=== PATIENT | female | born 1945 | race Caucasian/White ===

== ENCOUNTER → 2016-12-29 | Outpatient (CLI) | payer MEDICARE, OTHER | LOC: RAD 14:04 | PROVIDERS: ATTEND Physician Assistant | DX: M54.5 Low back pain (principal); M51.36 Other intervertebral disc degeneration, lumbar region | CPT/HCPCS: 72148 ==

== ENCOUNTER 2017-03-24 19:47 | Emergency (ER) | payer MEDICARE, OTHER ==
--- NOTE | 2017-03-24 20:11 | ER Document Report ---
ED GI/ - General Chief Complaint: Constipation Stated Complaint: POSSIBLE CONSTIPATION Time Seen by Provider: 03/24/17 19:51 Mode of Arrival: Ambulatory Information source: Patient Notes: 72-year-old female presents to ED for lower abdominal pain and chronic constipation. She states she takes oxycodone and methadone for her chronic pain. She states her last bowel movement was Tuesday. She has a history of right upper lobe lung cancer with partial right lobe removed she also has a history of cholesterol blood pressure and history of a pulmonary emboli which she did take her Xarelto for but is not on that anymore she also has a history of asthma and COPD and continues to smoke a pack a day. TRAVEL OUTSIDE OF THE [place] IN LAST 30 DAYS: No - HPI Patient complains to provider of: Abdominal pain, Other - Patient states she has not had a bowel movement since Tuesday and thinks she is either constipated or house of bowel obstruction. Onset: Other Timing/Duration: Gradual, Worse Quality of pain: Cramping, Sharp Severity at maximum: Moderate Severity in ED: Moderate Pain Level: 3 Location: LLQ, RLQ, Pelvis Vaginal bleeding (Compared to normal period): None Associated symptoms: Constipation, Other - Chronic pain management chronic constipation Exacerbated by: Movement Relieved by: Denies Similar symptoms previously: Yes Recently seen / treated by doctor: Yes - Related Data Allergies/Adverse Reactions: ZOILA Inhibitors Allergy (Verified 03/24/17 19:57) Past Medical History - General Information source: Patient - Social History Smoking Status: Current Every Day Smoker Cigarette use (# per day): Yes - Pack per day Chew tobacco use (# tins/day): No Smoking Education Provided: Yes - Patient has lung cancer COPD and asthma she has been reinstructed concernin Frequency of alcohol use: None Drug Abuse: None Lives with: Family Family History: Arthritis, CAD, COPD, CVA, Hyperlipidemia, Hypertension. denies : DM, Malignancy, Thyroid Disfunction Patient has suicidal ideation: No Patient has homicidal ideation: No - Past Medical History Cardiac Medical History: Reports: Hx Hypercholesterolemia - History of, Hx Hypertension, Hx Pulmonary Embolism - No longer on Xarelto Pulmonary Medical History: Reports: Hx Asthma, Hx COPD, Other - Right upper lobe lung cancer with right lobectomy EENT Medical History: Reports: None Neurological Medical History: Reports: None Endocrine Medical History: Reports: None Renal/ Medical History: Reports: None Malignancy Medical History: Reports: Hx Lung Cancer - upper right lobe GI Medical History: Reports: None Musculoskeltal Medical History: Reports Hx Arthritis, Reports Hx Musculoskeletal Deformity, Reports Hx Musculoskeletal Trauma Skin Medical History: Reports None Psychiatric Medical History: Reports: Hx Depression - zoloft Traumatic Medical History: Reports: None Infectious Medical History: Reports: None Past Surgical History: Reports: Hx Hysterectomy, Hx Orthopedic Surgery - 4 back surgeries, Other - Partial right lobectomy for lung cancer. Multiple spinal surgeries. - Immunizations Hx Diphtheria, Pertussis, Tetanus Vaccination: No History of Pneumococcal Vaccine: Yes - 2016 Review of Systems - Review of Systems Constitutional: No symptoms reported EENT: No symptoms reported Respiratory: No symptoms reported Gastrointestinal: Abdominal pain, Nausea, Constipation, Poor appetite. denies: Vomiting Genitourinary: No symptoms reported Female Genitourinary: No symptoms reported Musculoskeletal: No symptoms reported Skin: No symptoms reported Hematologic/Lymphatic: No symptoms reported Neurological/Psychological: No symptoms reported Physical Exam - Vital signs Vitals: Temp Pulse Resp BP Pulse Ox 98.2 F 82 20 111/57 L 92 03/24/17 19:57 03/24/17 19:57 03/24/17 19:57 03/24/17 19:57 03/24/17 19:57 Interpretation: Normal - General General appearance: Appears well, Alert - HEENT Head: Normocephalic, Atraumatic Eyes: Normal Pupils: PERRL - Respiratory Respiratory status: No respiratory distress Chest status: Nontender Breath sounds: Normal Chest palpation: Normal - Cardiovascular Rhythm: Regular Heart sounds: Normal auscultation Murmur: No - Abdominal Inspection: Normal Distension: No distension Bowel sounds: Hyperactive Tenderness: Tender Organomegaly: No organomegaly - Back Back: Normal, Nontender - Extremities General upper extremity: Normal inspection, Nontender, Normal color, Normal ROM , Normal temperature General lower extremity: Normal inspection, Nontender, Normal color, Normal ROM , Normal temperature, Normal weight bearing. No: Nani's sign - Neurological Neuro grossly intact: Yes Cognition: Normal Orientation: AAOx4 [place] Coma Scale Eye Opening: Spontaneous [place] Coma Scale Verbal: Oriented [place] Coma Scale Motor: Obeys Commands Tereso Coma Scale Total: 15 Speech: Normal Motor strength normal: LUE, RUE, LLE, RLE Sensory: Normal - Psychological Associated symptoms: Normal affect, Normal mood - Skin Skin Temperature: Warm Skin Moisture: Dry Skin Color: Normal Course - Re-evaluation Re-evalutation: 03/25/17 06:43 Patient was given soapsuds and then will enema. She continued to have abdominal pain CT was completed which was negative. Patient discharged home to follow-up with her primary doctor. Patient was instructed to please use as little pain medicine narcotics that she can and use MiraLAX at least daily and to follow-up her primary doctor to resolve her chronic constipation due to narcotics. - Vital Signs Vital signs: Temp Pulse Resp BP Pulse Ox 98.2 F 92 18 196/98 H 94 03/24/17 19:57 03/25/17 01:24 03/25/17 01:24 03/25/17 01:24 03/25/17 01:24 - Laboratory Result Diagrams: 03/24/17 20:15 03/24/17 20:15 Laboratory results interpreted by me: 03/24/17 03/24/17 03/24/17 20:15 20:15 20:35 Hgb 16.1 H Hct 48.2 H RDW 15.2 H Carbon Dioxide 31 H Urine Protein 100 H Urine Urobilinogen 2.0 H - Diagnostic Test Radiology reviewed: Image reviewed, Reports reviewed Discharge - Discharge Clinical Impression: Abdominal pain Qualifiers: Abdominal location: generalized Qualified Code(s): R10.84 - Generalized abdominal pain Condition: Stable Disposition: HOME, SELF-CARE Instructions: Family Physicians / Practices Additional Instructions: ABDOMINAL PAIN: There are many causes of abdominal pain. Pain can mean a serious problem requiring surgery (such as appendicitis). It can also be an innocent problem that goes away on its own (such as a viral infection). Often, time must pass to determine the cause of pain. The physician does not feel that hospitalization is necessary, at present. Things may change within the next 24 hours. Call the doctor or come back for re- examination if any problems occur, such as: (1) Pain that becomes more severe, steady, or becomes concentrated in one specific area. Also, pain that is more severe with movement or coughing. (2) Vomiting that persists or becomes more frequent. (3) Blood in the vomitus, urine, or bowel movements. Blood in the stool may have a tarry or black appearance. (4) Shaking chills or fever greater than 100 degrees F. (5) The abdomen becomes more distended or swollen. (6) Bowel movements cease. (7) Failure to improve as expected. NORMAL EXAM AND WORKUP: At this time, your examination and workup show no significant abnormality. No significant abnormal physical findings are noted. All laboratory, EKG, and imaging (x-ray, CT scans, ultrasound) studies that were ordered show no significant abnormality. Although your examination and all studies that were ordered showed no significant abnormal finding, there are no examinations and no studies that are 100% accurate. There is always the possibility that some abnormality could exist and not be detected with physical examination or within the limits and capabilities of laboratory and other studies. You should return or follow up as you were instructed on your visit today for further evaluation if your symptoms do not resolve. Constipation Constipation is a common problem. It is especially likely as you get older. Constipation is a common cause of abdominal pain, but sometimes causes no symptoms at all. Causes of constipation include certain medications, dehydration, diets, inactivity, and low-fiber intake. Rarely, it can be a symptom of underlying disease. The physician has evaluated you for this. Avoid constipation by eating a diet high in fiber, fruits, and vegetables. Drink plenty of liquids. Get regular exercise. If possible, avoid constipating medicines like narcotic pain medication. Some vitamin tablets can cause constipation. Stool softeners may be needed for difficult cases. An excellent stool softener is Konsyl which is available at [employer], and [facility] drug store. Just add a teaspoon to a glass of pineapple or orange juice daily or twice a day if needed. Laxatives are useful for occasional constipation. You should use them only when necessary. Too-frequent use can make your bowels dependent on them. Some over the counter laxatives available without prescription are: Milk of Magnesia, 1-2 tablespoons twice a day Dulcolax, 5 mg pill or 10 mg suppository. Citrate of Magnesia, 4-5 ounces a day for a day or two For acute constipation, Fleet's Enemas and Dulcolax suppositories are helpful. 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 Your bowel may become dependant on them. You do not need to have a bowel movement every day. Many people do fine with a bowel movement every three or four days. You should call your doctor or return for re-evaluation if you pass blood in the stool, or if you develop fever or increasing abdominal pain. TORADOL INJECTION: You have been given an injection of ketorolac tromethamine (Toradol). This is an excellent, safe drug for pain control. It also has potent antiinflammatory action. You should have significant pain relief within about one hour. Toradol is not addicting and is non-sedating. It does not interfere with driving or work. Call or return if you develop itching, hives, shortness of breath, or rash. FOLLOW-UP CARE: If you have been referred to a physician for follow-up care, call the physician s office for an appointment as you were instructed or within the next two days. If you experience worsening or a significant change in your symptoms, notify the physician immediately or return to the Emergency Department at any time for re-evaluation. Forms: Smoking Cessation Education
[2017-03-24 20:33] LABS: ABSOLUTE EOSINOPHILS # (AUTO) 0.2 10^3/uL (0.0-0.6); ABSOLUTE LYMPHOCYTES (AUTO) 1.7 10^3/uL (0.5-4.7); ABSOLUTE MONOCYTES (AUTO) 0.8 10^3/uL (0.1-1.4); ABSOLUTE NEUT (AUTO) 6.2 10^3/uL (1.7-8.2); BASOPHILS % (AUTO) 0.5 % (0-2); EOSINOPHILS % (AUTO) 1.8 % (0-6); HEMATOCRIT 48.2 % (36.0-47.0); HEMOGLOBIN 16.1 g/dL (12.0-15.5); HGB HCT DIFFERENCE 0.1; LYMPHOCYTES % (AUTO) 19.5 % (13-45); MEAN CORPUSCULAR HEMOGLOBIN 30.5 pg (27.0-33.4); MEAN CORPUSCULAR HGB CONC 33.5 g/dL (32.0-36.0); MEAN CORPUSCULAR VOLUME 91 fl (80-97); MONOCYTES % (AUTO) 9.1 % (3-13); RED BLOOD COUNT 5.28 10^6/uL (3.72-5.28); RED CELL DISTRIBUTION WIDTH 15.2 % (11.5-14.0); SEGMENTED NEUTROPHILS % (AUTO) 69.1 % (42-78); WHITE BLOOD COUNT 8.9 10^3/uL (4.0-10.5)
--- NOTE | 2017-03-24 20:49 | RADIOLOGY REPORT (SQ) ---
EXAM DESCRIPTION: ACUTE ABDOMEN SERIES COMPLETED DATE/TIME: 03/24/2017 8:32 pm REASON FOR STUDY: abdominal pain no bm since tuesday COMPARISON: None. NUMBER OF VIEWS: Three views. TECHNIQUE: Frontal chest, supine abdomen and upright/decubitus abdomen radiographic images acquired. LIMITATIONS: None. FINDINGS: CHEST: Calcified granuloma in the right lung. No focal opacities. No pneumothorax. FREE AIR: None. No abnormal gas collections. BOWEL GAS PATTERN: Nonobstructive pattern. No dilated loops or air fluid levels. Mild amount of stoo l noted within the colon. CALCIFICATIONS: No suspicious calcifications. HARDWARE: None in the abdomen. SOFT TISSUES: No gross mass or suggestion of organomegaly. BONES: No acute fracture. No worrisome bone lesions. OTHER: No other significant finding. IMPRESSION: NO RADIOGRAPHIC EVIDENCE FOR ACUTE ABDOMINAL DISEASE. Mild colonic stool burden. TECHNICAL DOCUMENTATION: JOB ID: [id number] [employer]- All Rights Reserved
[2017-03-24 20:51] LABS: ANION GAP 8 (5-19); BLOOD UREA NITROGEN 13 mg/dL (7-20); CALCIUM 10.1 mg/dL (8.4-10.2); CARBON DIOXIDE 31 mmol/L (22-30); CHLORIDE 100 mmol/L (98-107); CREATININE RESULT 0.77 mg/dL (0.52-1.25); GLUCOSE 94 mg/dL (75-110); POTASSIUM 4.3 mmol/L (3.6-5.0); SODIUM 138.7 mmol/L (137-145)
[2017-03-24 20:56] LABS: APPEARANCE,URINE CLEAR; BILIRUBIN,URINE NEGATIVE (NEGATIVE); GLUCOSE, URINE NEGATIVE (NEGATIVE); KETONES,URINE NEGATIVE (NEGATIVE); LEUKOCYTE ESTERASE,URINE NEGATIVE (NEGATIVE); NITRITE,URINE NEGATIVE (NEGATIVE); PROTEIN,URINE 100 mg/dL (NEGATIVE); URINE SPECIFIC GRAVITY 1.019
[2017-03-24] MEDS ORDERED: MINERAL OIL 30 ML UDCUP PR ONE (21:37)
[2017-03-24] MEDS ORDERED: KETOROLAC TROMETHAMINE INJ/PF 30 MG/1 ML SDV IV ONE (23:39)
--- NOTE | 2017-03-25 00:35 | RADIOLOGY REPORT (SQ) ---
EXAM DESCRIPTION: CT ABD/PELVIS WITH IV ONLY COMPLETED DATE/TIME: 03/25/2017 12:17 am REASON FOR STUDY: lower abd pain , chronic constipation COMPARISON: None. TECHNIQUE: CT scan of the abdomen and pelvis performed using helical scanning technique with dynamic intravenous contrast injection. No oral contrast. Images reviewed with lung, soft tissue, and bone windows. Reconstructed coronal and sagittal MPR images reviewed. Delayed images for evaluation of the urinary system also acquired. All images stored on PACS. All CT scanners at this facility use dose modulation, iterative reconstruction, and/or weight based d osing when appropriate to reduce radiation dose to as low as reasonably achievable (ALARA). [facility]: Dose Right [facility]: CareDose [facility]: Dose Right [facility]: Teradose 4D [facility]: [email or web address] CONTRAST TYPE AND DOSE: contrast/concentration: Isovue 370.00 mg/ml; Total Contrast Delivered: 72.0 ml; Total Saline Delivered: 66.0 ml RENAL FUNCTION: Creatinine 0.77. RADIATION DOSE: Up-to-date CT equipment and radiation dose reduction techniques were employed. CTDIv ol: 8.6 mGy. DLP: 869 mGy-cm.. LIMITATIONS: None. FINDINGS: LOWER CHEST: No significant findings. No nodules or infiltrates. LIVER: Normal size. No masses. No dilated ducts. SPLEEN: Normal size. No focal lesions. PANCREAS: No masses. No significant calcifications. No adjacent inflammation or peripancreatic fluid collections. Pancreatic duct not dilated. GALLBLADDER: No identified stones by CT criteria. No inflammatory changes to suggest cholecystitis. ADRENAL GLANDS: No significant masses or asymmetry. RIGHT KIDNEY AND URETER: No solid masses. No significant calcifications. No hydronephrosis or hyd roureter. LEFT KIDNEY AND URETER: Atrophic but functional. No solid masses. No significant calcifications. No hydronephrosis or hydroureter. AORTA AND VESSELS: Dense calcifications. No aneurysm. No dissection. Renal arteries, SMA, celiac wit hout stenosis. RETROPERITONEUM: No retroperitoneal adenopathy, hemorrhage or masses. BOWEL AND PERITONEAL CAVITY: Scattered colonic diverticuli. No masses or inflammatory changes. No fr ee fluid or peritoneal masses. APPENDIX: Normal. PELVIS: No mass. No free fluid. Normal bladder. ABDOMINAL WALL: No masses. No hernias. BONES: Chronic changes in the spine with compression deformities. OTHER: No other significant finding. IMPRESSION: 1. COLONIC DIVERTICULOSIS. NO CT FINDINGS OF ACUTE DIVERTICULITIS. 2. ATROPHIC BUT FUNCTIONAL LEFT KIDNEY. 3. NO OTHER SIGNIFICANT OR ACUTE FINDING IN THE ABDOMEN OR PELVIS ON CT SCAN WITH IV CONTRAST. TECHNICAL DOCUMENTATION: JOB ID: [id number] Quality ID # [id number]: Final reports with documentation of one or more dose reduction techniques (e.g., Au tomated exposure control, adjustment of the mA and/or kV according to patient size, use of iterative reconstruction technique) 2010 [employer]- All Rights Reserved
[2017-03-25 01:25] VITALS: BP 196/98
== END 2017-03-25 01:24 | disposition home or self-care (01) ==
LOC: ER 19:47
DX: K59.03 Drug induced constipation (principal); T40.2X5A Adverse effect of other opioids, initial encounter; R10.84 Generalized abdominal pain; G89.29 Other chronic pain; R11.0 Nausea; R63.0 Anorexia; I10 Essential (primary) hypertension; J44.9 Chronic obstructive pulmonary disease, unspecified; F17.210 Nicotine dependence, cigarettes, uncomplicated; Z71.6 Tobacco abuse counseling; Z79.891 Long term (current) use of opiate analgesic; Z90.2 Acquired absence of lung [part of]; Z85.118 Personal history of other malignant neoplasm of bronchus and lung; Z86.711 Personal history of pulmonary embolism; Z88.8 Allergy status to other drugs, medicaments and biological substances
CPT/HCPCS: 99284; 51701; 96374; 36415; 85025; 80048; 81001; 74022; 74177; J1885; J3490

== ENCOUNTER 2017-06-09 20:51 | Inpatient (IN) | payer MEDICARE, OTHER ==
[2017-06-09] MEDS: MAGNESIUM SULFATE/D5W 1 GM/100 ML RTUPB IV SCH ×2 (21:35→22:25)
[2017-06-09] MEDS ORDERED: ALBUTEROL SULFATE 0.083% NEB 2.5 MG/3 ML AMPUL NEB ONE (21:59)
[2017-06-09 22:01] LABS: ABSOLUTE EOSINOPHILS # (AUTO) 0.1 10^3/uL (0.0-0.6); ABSOLUTE LYMPHOCYTES (AUTO) 1.1 10^3/uL (0.5-4.7); ABSOLUTE MONOCYTES (AUTO) 0.6 10^3/uL (0.1-1.4); ABSOLUTE NEUT (AUTO) 8.7 10^3/uL (1.7-8.2); BASOPHILS % (AUTO) 0.4 % (0-2); EOSINOPHILS % (AUTO) 1.1 % (0-6); HEMATOCRIT 39.9 % (36.0-47.0); HEMOGLOBIN 13.6 g/dL (12.0-15.5); HGB HCT DIFFERENCE 0.9; LYMPHOCYTES % (AUTO) 10.8 % (13-45); MEAN CORPUSCULAR HEMOGLOBIN 31.3 pg (27.0-33.4); MEAN CORPUSCULAR VOLUME 92 fl (80-97); MONOCYTES % (AUTO) 6.1 % (3-13); RED BLOOD COUNT 4.35 10^6/uL (3.72-5.28); RED CELL DISTRIBUTION WIDTH 13.4 % (11.5-14.0); SEGMENTED NEUTROPHILS % (AUTO) 81.6 % (42-78); WHITE BLOOD COUNT 10.6 10^3/uL (4.0-10.5)
--- NOTE | 2017-06-09 22:01 | RADIOLOGY REPORT (SQ) ---
EXAM DESCRIPTION: CHEST SINGLE VIEW COMPLETED DATE/TIME: 06/09/2017 9:30 pm REASON FOR STUDY: sob, copd COMPARISON: 08/18/2016 EXAM PARAMETERS: NUMBER OF VIEWS: One view. TECHNIQUE: Single frontal radiographic view of the chest acquired. RADIATION DOSE: NA LIMITATIONS: None. FINDINGS: LUNGS AND PLEURA: No acute opacities, masses or pneumothorax. No pleural effusion. MEDIASTINUM AND HILAR STRUCTURES: Stable. HEART AND VASCULAR STRUCTURES: Stable. BONES: No acute findings. HARDWARE: None in the chest. OTHER: No other significant finding. IMPRESSION: NO ACUTE RADIOGRAPHIC FINDING IN THE CHEST. TECHNICAL DOCUMENTATION: JOB ID: [id number]
[2017-06-09] MEDS ORDERED: AZITHROMYCIN 250 MG TABLET PO ONE (22:21)
[2017-06-09] MEDS ORDERED: TRAMADOL HCL 50 MG TABLET PO ONE (22:23)
[2017-06-09] MEDS ORDERED: NORMAL SALINE 1000 ML 1,000 ML IV ONE (22:24)
--- NOTE | 2017-06-09 22:24 | ER Document Report ---
ED General - General Chief Complaint: Respiratory Distress Stated Complaint: DIFFICULITY BREATHING Time Seen by Provider: 06/09/17 20:59 Notes: Patient is a 72-year-old female with a past medical history of COPD, continues to actively smoke, history of a right partial lobectomy, chronic pain although no longer on opiates who presents with 24 hours of progressively worsening shortness of breath. Patient states that she has been using her home nebulizers with moderate improvement of her difficulty breathing but shortly after completion of the nebulizer her dyspnea returns. EMS was contacted and found patient to be saturating in the mid 80s and in respiratory distress. At time of assessment, patient states she overall feels improved relative to how she felt prior to receiving the treatments provided by EMS but continues to feel somewhat dyspneic. She has not had any fever or constitutional symptoms. No known sick contacts. She has been hospitalized in the past for COPD but has never required intubation for COPD. She does not use any chronic control medications for her COPD. Patient has not seen her primary care doctor regarding today's concerns. She denies any associated chest pain. TRAVEL OUTSIDE OF THE [place] IN LAST 30 DAYS: No - Related Data Allergies/Adverse Reactions: ZOILA Inhibitors Allergy (Verified 03/24/17 19:57) Past Medical History - General Information source: Patient - Social History Smoking Status: Current Every Day Smoker Frequency of alcohol use: None Drug Abuse: None Lives with: Family Family History: Arthritis, CAD, COPD, CVA, Hyperlipidemia, Hypertension. denies : DM, Malignancy, Thyroid Disfunction - Past Medical History Cardiac Medical History: Reports: Hx Hypercholesterolemia - History of, Hx Hypertension, Hx Pulmonary Embolism - No longer on Xarelto Pulmonary Medical History: Reports: Hx Asthma, Hx COPD Renal/ Medical History: Denies: Hx Peritoneal Dialysis Malignancy Medical History: Reports: Hx Lung Cancer - upper right lobe Musculoskeltal Medical History: Reports Hx Arthritis, Reports Hx Musculoskeletal Deformity, Reports Hx Musculoskeletal Trauma Psychiatric Medical History: Reports: Hx Depression - zoloft Past Surgical History: Reports: Hx Hysterectomy, Hx Orthopedic Surgery - 4 back surgeries, Other - Partial right lobectomy for lung cancer. Multiple spinal surgeries. - Immunizations Hx Diphtheria, Pertussis, Tetanus Vaccination: No Hx Pneumococcal Vaccination: 06/05/11 Review of Systems - Review of Systems Notes: Constitutional: Negative for fever. HENT: Negative for sore throat. Eyes: Negative for visual changes. Cardiovascular: Negative for chest pain. Respiratory: Positive for shortness of breath. Gastrointestinal: Negative for abdominal pain, vomiting or diarrhea. Genitourinary: Negative for dysuria. Musculoskeletal: Negative for back pain. Skin: Negative for rash. Neurological: Negative for headaches, weakness or numbness. 10 point ROS negative except as marked above and in HPI. Physical Exam - Vital signs Vitals: Resp Pulse Ox 21 H 92 06/09/17 21:00 06/09/17 21:00 Interpretation: Hypoxic, Tachypneic Notes: PHYSICAL EXAMINATION: GENERAL: Appears moderately uncomfortable but in no acute distress. HEAD: Atraumatic, normocephalic. EYES: Pupils equal round and reactive to light, extraocular movements intact, sclera anicteric, conjunctiva are normal. ENT: nares patent, oropharynx clear without exudates. Moderately dry mucous membranes. NECK: Normal range of motion, supple without lymphadenopathy LUNGS: Mild tachypnea, initial respiratory rate of 22. Mild expiratory wheezing bilaterally without any significant diminished air movement. HEART: Regular rate and rhythm without murmurs ABDOMEN: Soft, nontender, normoactive bowel sounds. No guarding, no rebound. No masses appreciated. EXTREMITIES: Normal range of motion, no pitting or edema. No cyanosis. NEUROLOGICAL: No focal neurological deficits. Moves all extremities spontaneously and on command. PSYCH: Normal mood, normal affect. SKIN: Warm, Dry, normal turgor, no rashes or lesions noted. Course - Re-evaluation Re-evalutation: 06/09/17 2140 Patient arrives by EMS after initially being found in respiratory distress after receiving a total of 3 nebulizers and IV Solu-Medrol she does arrive saturating 97% on room air and in no obvious respiratory distress. He does have mild expiratory wheezing on initial presentation but is otherwise well in appearance, in no distress. Will obtain chest x-ray, labs, provide IV magnesium , and continue to monitor closely 06/09/17 22:22 Patient is now having increased work of breathing, now with 2 L by nasal cannula oxygen dependence. Repeat examination shows advanced wheezing in all lung [place] diminished breath sounds throughout. Chest x-ray is without any evidence of an acute pneumonia. Labs are pending. Will restart continuous nebulizers at this time. Will also initiate azithromycin and ceftriaxone for antibiotic coverage in the setting of COPD exacerbation. 06/10/17 00:08 Patient continues to have mild tachypnea, continues to require oxygen 2 L by nasal cannula to maintain her saturations between 92-93%. She does not normally require home oxygen. She has been restarted on continuous albuterol nebulizers at this time. Patient will be admitted to the hospitalist service and I have discussed with Dr. Parrish who will admit. - Vital Signs Vital signs: Temp Pulse Resp BP Pulse Ox 28 H 119/51 L 93 06/09/17 21:01 06/09/17 21:01 06/09/17 21:01 - Laboratory Result Diagrams: 06/09/17 21:44 06/09/17 21:44 Laboratory results interpreted by me: 06/09/17 06/09/17 06/09/17 21:44 21:44 21:44 WBC 10.6 H Seg Neutrophils % 81.6 H Lymphocytes % 10.8 L Absolute Neutrophils 8.7 H Sodium 136.5 L Glucose 121 H Albumin 3.4 L - Diagnostic Test Radiology reviewed: Image reviewed, Reports reviewed Radiology results interpreted by me: 06/10/17 00:13 Chest x-ray: No acute infiltrate or pneumothorax - EKG Interpretation by Me Additional EKG results interpreted by me: 06/10/17 03:35 Normal sinus rhythm. Rate 94. No ST elevations or depressions. QTC is 471. Critical Care Note - Critical Care Note Total time excluding time spent on procedures (mins): 38 Comments: Critical care time spent obtaining history from patient or surrogate, discussions with consultants, development of treatment plan with patient or surrogate, evaluation of patient's response to treatment, examination of patient , ordering and performing treatments and interventions, ordering and review of laboratory studies, re-evaluation of patient's condition, ordering and review of radiographic studies and review of old charts Discharge - Discharge Clinical Impression: COPD exacerbation, Tobacco dependency, Hypoxemia, Acute hypoxemic respiratory failure Condition: Fair Disposition: ADMITTED INPATIENT Admitting Provider: Cecy Parrish Unit Admitted: [facility]
[2017-06-09 22:40] LABS: ANION GAP 6 (5-19); CALCIUM 9.6 mg/dL (8.4-10.2); CARBON DIOXIDE 28 mmol/L (22-30); CHLORIDE 103 mmol/L (98-107); CREATININE RESULT 0.78 mg/dL (0.52-1.25); GLUCOSE 121 mg/dL (75-110); SODIUM 136.5 mmol/L (137-145)
[2017-06-09 22:46] LABS: BLOOD UREA NITROGEN 17 mg/dL (7-20); POTASSIUM 4.1 mmol/L (3.6-5.0)
[2017-06-09] MEDS ORDERED: CEFTRIAXONE 1 GM/D5W RTU 1 GM/50 ML RTUPB IV ONE (23:30)
[2017-06-10] MEDS ORDERED: ALBUTEROL SULFATE 0.083% NEB 2.5 MG/3 ML AMPUL NEB ONE (00:08)
[2017-06-10] MEDS ORDERED: PROMETHAZINE HCL 25 MG TABLET PO PRN ×2 (00:18→17:27)
[2017-06-10] MEDS ORDERED: ACETAMINOPHEN 325 MG TABLET PO PRN (00:18)
[2017-06-10 01:32] LABS: ADD ON TESTING BLD IN LAB ACKNOWLEDGE
[2017-06-10] MEDS ORDERED: GLUCAGON,HUMAN RECOMB 1 MG INJ IM PRN (01:36)
[2017-06-10] MEDS ORDERED: DEXTROSE 50%-WATER 25 GM/50 ML DISP.SYRIN IV PRN ×2 (01:36)
[2017-06-10] MEDS ORDERED: INSULIN LISPRO 100 UNIT/ML 3 ML VIAL SUBCUT PRN (01:36)
[2017-06-10] MEDS ORDERED: DEXTROSE 40% GEL 15 GM TUBE PO PRN ×2 (01:36)
[2017-06-10] MEDS ORDERED: NICOTINE 14 MG/24 HR PATCH.TD24 TD PRN (01:38)
[2017-06-10] MEDS ORDERED: NORMAL SALINE 1000 ML 1,000 ML IV PRN (01:42)
[2017-06-10 01:44] LABS: VENOUS BLOOD BASE EXCESS 2.2 mmol/L; VENOUS BLOOD HCO3 29.1 mmol/L (20-32); VENOUS BLOOD PCO2 55.2 mmHg (35-63); VENOUS BLOOD PH 7.34 (7.30-7.42)
[2017-06-10 01:47] LABS: ALANINE AMINOTRANSFERASE 17 U/L (9-52); ALBUMIN 3.4 g/dL (3.5-5.0); ALKALINE PHOSPHATASE 69 U/L (38-126); ASPARTATE AMINO TRANSFERASE 24 U/L (14-36); BILIRUBIN,DIRECT 0.4 mg/dL (0.0-0.4); BILIRUBIN,TOTAL 0.4 mg/dL (0.2-1.3); TOTAL PROTEIN 6.3 g/dL (6.3-8.2)
[2017-06-10] MEDS ORDERED: LANSOPRAZOLE 30 MG TAB.RAP.DR PO ONE (02:00)
--- NOTE | 2017-06-10 02:00 | PDOC H&P ---
History of Present Illness Admission Date/PCP: Dr. Mejía (sp.??), [facility] Patient complains of: Difficulty breathing History of Present Illness: CASE DASILVA is a 72 year old female, with underlying non-home O2 dependent COPD, along with asthma, just under a pack a day continued smoker who presents to the emergency room for evaluation of progressive difficulty breathing since the morning of the . Was in fairly significant respiratory distress upon EMS and emergency room arrival. Did improve quite a bit and initial thoughts by the emergency room physician were to discharge patient home. However, upon reexamination, she had diffuse wheezing and appeared to be in slowly worsening respiratory distress and certainly was no candidate to be discharged. She denies nausea vomiting, fever or chills, diarrhea or dysuria. No chest or abdominal pain. Wheezes most days. Has had home O2 in the past, but did not use it for quite a while, and let the prescription lapse. No hospitalization or antibiotic use for the last 3 months. Has never been intubated for respiratory difficulty. Chronic back and lower extremity pain. Discharged from her pain clinic. Currently receiving Suboxone from a friend. States gabapentin manages her lower back pain, but does not help with the lower extremity pain. Patient has had multiple spine surgeries. Patient has been discussed with emergency room physician who evaluated the patient. Hospitalized on our service the through the of last August with final diagnoses including COPD exacerbation and acute hypoxemic respiratory failure. Discharge summary reviewed. Of interest, CT scan during that hospital stay revealed possible mass in her chest. Please see comments and discharge summary related to same. Patient states she was seen in follow-up at [facility], with further evaluation they are revealing it to be "an encapsulated sponge." No further treatment was felt necessary. Dictation via voice recognition software. Laboratory results are listed in [facility] and are reviewed. X-ray summary results are listed below, with full report(s) reviewed. . EKG reviewed and compared to prior tracing from August 18 of last year. Social history/personal habits: . Lives alone. Just under 1 pack a day smoker. No alcohol or illicit drug use. Allergies/adverse reactions are listed in [facility] and are reviewed. ZOILA inhibitors cause her to cough Home medications initially autopopulated into [employer] may not accurately reflect patient's true medications, dosages, and/or frequencies. geoscience technician to reconcile medications. Unfortunately, patient not certain of all medications/dosages/frequencies. REVIEW OF SYSTEMS: Constitutional: No fever or chills. Eyes: Wears glasses. ENT: No swallowing problems or complaints. Denies hearing loss. Pulmonary: See history and present illness. Cardiovascular: No current complaints, including chest pain. Gastrointestinal: No current complaints, including nausea or vomiting. Skin: No current complaints, including rashes. Hematologic: Easy bruising. Neurologic: See history and present illness. Musculoskeletal: See history and present illness. Psychiatric: Mild occasional depression. Denies suicidal or homicidal ideation. Endocrine: No current complaints, including polyuria. Genitourinary: No current complaints, including dysuria. PHYSICAL EXAMINATION: 5 feet 3 inches tall. 67.1 kg. BMI 26.2 kg/m. Blood pressure 158/59. Pulse 101 and regular. 96% saturation on 3 L oxygen per nasal cannula. Respirations are 22 and unlabored. Temperature not recorded on chart; skin feels normothermic. Well-nourished well-developed though perhaps somewhat chronically ill-appearing female who nevertheless appears approximately her stated age. Pleasant awake alert and cooperative. Appears perhaps slightly fatigued, and also to feel a bit under the weather, so to speak. Skin is warm and dry. No grossly obvious evidence of rash in areas of skin examined. No subcutaneous nodules palpated. ENT: Hearing grossly normal to normal conversation. Tongue midline on protrusion pink and slightly tacky. Eyes: No scleral icterus. Pupils equal and reactive to light at 4 mm. Warm [place] conjunctivae. Neck is supple and nontender to gentle active range of motion and palpation. Midline trachea. No palpable thyroid nodule mass enlargement or tenderness. Lymphatic: No palpable cervical or clavicular nodes. Neck and lymphatic exams limited by patient body habitus. Psychiatric: Reasonable insight into acute and chronic medical issues. Oriented to time location and why here. Lungs: Auscultation reveals equal breath sounds bilaterally. No use of accessory respiratory muscles. Diffusely coarse breath sounds with some expiratory wheezing bilaterally. Cardiovascular: Heart regular rate and rhythm, without gallop murmur or rub. No carotid or abdominal aortic bruits. No ankle or pedal edema. Faintly palpable dorsalis pedis pulses. Abdomen:soft slightly distended nontender with positive bowel sounds. Unable to adequately evaluate abdomen for masses or organomegaly due to distention. Extremities: Feet are warm and dry. No calf tenderness to compression. No grossly obvious visual evidence of calf swelling. Gentle manipulation of lower extremities fails to reveal any obvious evidence of injury or instability to knees hips or ankles. Neurologic: Moves upper extremities grossly normally. Patellar reflexes absent. Absent Babinski. Light touch decreased at feet, a chronic finding according to patient, without recent change. Dorsiflexion and plantarflexion of feet 5 / 5 and symmetric. Past Medical History Cardiac Medical History: Reports: Hyperlipidema - History of, Hypertension, Pulmonary Embolism - No longer on Xarelto Denies: Atrial Fibrillation, Congestive Heart Failure, Myocardial Infarction Pulmonary Medical History: Reports: Asthma, Chronic Obstructive Pulmonary Disease (COPD) Denies: Sleep Apnea EENT Medical History: Reports: Eyes - Glasses Denies: Ears, Throat Neurological Medical History: Denies: Hemorrhagic CVA, Ischemic CVA, Seizures Endocrine Medical History: Denies: Diabetes Mellitus Type 1, Diabetes Mellitus Type 2, Hyperthyroidism, Hypothyroidism Malignancy Medical History: Reports: Lung Cancer - upper right lobe GI Medical History: Denies: Cirrhosis, Gastroesophageal Reflux Disease, Hepatitis, Peptic Ulcer Disease Musculoskeltal Medical History: Reports: Arthritis Skin Medical History: Reports: None Psychiatric Medical History: Reports: Depression, Tobacco Dependency Denies: Alcohol Dependency, General Anxiety Disorder, Substance Abuse Hematology: Reports: Other - Easy bruising Infectious Medical History: Denies: Hepatitis B, Hepatitis C Past Surgical History Past Surgical History: Reports: Hysterectomy, Orthopedic Surgery - 4 back surgeries, Other - Partial right lobectomy for lung cancer. Multiple spinal surgeries. Social History Information Source: Patient, Emergency Med Personnel, [facility] Records Lives with: Alone Smoking Status: Current Every Day Smoker Frequency of Alcohol Use: None Hx Recreational Drug Use: No Hx Prescription Drug Abuse: No - Advance Directive Resuscitation Status: Full Code Surrogate healthcare decision maker:: Granddaughter Tete Jordan Family History Family History: Arthritis, CAD, COPD, CVA, Hyperlipidemia, Hypertension. denies : DM, Malignancy, Thyroid Disfunction Parental Family History Reviewed: Yes - Mother of colon cancer. Father of myocardial infarction. Children Family History Reviewed: Yes - Healthy Sibling(s) Family History Reviewed.: Yes - Brother is a lung cancer survivor. Medication/Allergy Home Medications: Albuterol Sulfate [Albuterol Sulfate 2.5mg/3 mL] 1 vial NEB Q4HP PRN 06/10/17 Clonidine HCl [Catapres 0.1 mg Tablet] 0.1 mg PO TID 06/10/17 Diazepam [Valium 5 mg Tablet] 5 mg PO TIDP PRN 06/10/17 Gabapentin [Neurontin] 800 mg PO QID 06/10/17 Losartan Potassium [Cozaar 50 mg Tablet] 50 mg PO DAILY 06/10/17 Methadone HCl 5 mg PO Q8 06/10/17 Oxycodone HCl [Oxy-Ir 5 mg Tablet] 10 mg PO Q12 06/10/17 Promethazine HCl [Phenergan 25 mg Tablet] 25 mg PO Q6HP PRN 06/10/17 Sertraline HCl [Zoloft] 100 mg PO QHS 06/10/17 Allergies/Adverse Reactions: ZOILA Inhibitors Allergy (Verified 03/24/17 19:57) Physical Exam Vital Signs: Temp Pulse Resp BP Pulse Ox 28 H 119/51 L 93 06/09/17 21:01 06/09/17 21:01 06/09/17 21:01 Intake & Output 06/09/17 06/10/17 06/11/17 00:59 00:59 00:59 Weight 67.132 kg Results Laboratory Results: 06/09/17 21:44 06/09/17 21:44 06/09/17 06/09/17 06/10/17 21:44 21:44 01:35 WBC 10.6 H RBC 4.35 Hgb 13.6 Hct 39.9 MCV 92 MCH 31.3 MCHC 34.0 RDW 13.4 Plt Count 287 Seg Neutrophils % 81.6 H Lymphocytes % 10.8 L Monocytes % 6.1 Eosinophils % 1.1 Basophils % 0.4 Absolute Neutrophils 8.7 H Absolute Lymphocytes 1.1 Absolute Monocytes 0.6 Absolute Eosinophils 0.1 Absolute Basophils 0.0 VBG pH 7.34 VBG pCO2 55.2 VBG HCO3 29.1 VBG Base Excess 2.2 Sodium 136.5 L Potassium 4.1 Chloride 103 Carbon Dioxide 28 Anion Gap 6 BUN 17 Creatinine 0.78 Est GFR ( Amer) > 60 Est GFR (Non-Af Amer) > 60 Glucose 121 H Calcium 9.6 Impressions: Chest X-Ray 06/09/17 21:21 IMPRESSION: NO ACUTE RADIOGRAPHIC FINDING IN THE CHEST. Assessment & Plan - Diagnosis (1) Chronic pain of lower extremity, bilateral Is this a current diagnosis for this admission?: Yes Plan: As needed pain meds. (2) Chronic back pain Qualifiers: Back pain location: low back pain Sciatica laterality: sciatica laterality unspecified Is this a current diagnosis for this admission?: Yes Plan: As needed pain meds. (3) Asthma exacerbation Qualifiers: Asthma severity: unspecified severity Asthma persistence: unspecified Qualified Code(s): J45.901 - Unspecified asthma with (acute) exacerbation Is this a current diagnosis for this admission?: Yes (4) Tobacco dependency Is this a current diagnosis for this admission?: Yes Plan: As needed nicotine patch. (5) Depression Qualifiers: Depression Type: unspecified Qualified Code(s): F32.9 - Major depressive disorder, single episode, unspecified Is this a current diagnosis for this admission?: Yes Plan: Resume home medications as appropriate once these have been determined and reviewed. (6) HTN (hypertension) Qualifiers: Hypertension type: essential hypertension Qualified Code(s): I10 - Essential (primary) hypertension Is this a current diagnosis for this admission?: Yes Plan: Resume home medications as appropriate once these have been determined and reviewed. (7) COPD exacerbation Is this a current diagnosis for this admission?: Yes Plan: Patient will be admitted under COPD and asthma exacerbation protocol. Incentive spirometry twice a day. Scheduled DuoNeb's. As needed albuterol nebs. Solu-Medrol. Prevacid for gastritis prophylaxis. Antibiotics will consist of intravenous Zithromax and Rocephin. I strongly encouraged patient to notify staff should patient feel that breathing is worsening. Patient is a full code. I have strongly encouraged patient not to get out of bed without notifying staff , to avoid a fall with injury. Knee high SCDs for DVT prophylaxis, along with subcutaneous Lovenox. Impression and plans were discussed with patient who concurs. Time spent in evaluation and management of patient: 70 minutes. - Time Time Spent: 50 to 70 Minutes Medications reviewed and adjusted accordingly: No - Patient uncertain of all her meds. Anticipated discharge: Home Within: within 72 hours - Inpatient Certification Based on my medical assessment, after consideration of the patient's comorbidities, presenting symptoms, or acuity I expect that the services needed warrant INPATIENT care.: Yes I certify that my determination is in accordance with my understanding of Medicare's requirements for reasonable and necessary INPATIENT services [42 CFR 412.3e].: Yes Medical Necessity: Need Close Monitoring Due to Risk of Patient Decompensation, Need For IV Fluids, Need For Continuous Telemetry Monitoring, Need for Nebulizer Therapy and Monitoring of Response, Need for IV Antibiotics, Risk of Complication if Not Cared For in Hospital Post Hospital Care: D/C or Transfer Summary
[2017-06-10] MEDS ORDERED: METHYLPREDNISOLONE INJ 40 MG/1 ML SDV IV ONE (04:00)
[2017-06-10 06:16] LABS: ABSOLUTE LYMPHOCYTES (AUTO) 0.4 10^3/uL (0.5-4.7); ABSOLUTE MONOCYTES (AUTO) 0.2 10^3/uL (0.1-1.4); ABSOLUTE NEUT (AUTO) 7.6 10^3/uL (1.7-8.2); BASOPHILS % (AUTO) 0.2 % (0-2); HEMATOCRIT 39.7 % (36.0-47.0); HEMOGLOBIN 13.1 g/dL (12.0-15.5); HGB HCT DIFFERENCE -0.4; LYMPHOCYTES % (AUTO) 5.2 % (13-45); MEAN CORPUSCULAR HEMOGLOBIN 30.4 pg (27.0-33.4); MEAN CORPUSCULAR HGB CONC 33.1 g/dL (32.0-36.0); MEAN CORPUSCULAR VOLUME 92 fl (80-97); MONOCYTES % (AUTO) 2.4 % (3-13); RED BLOOD COUNT 4.31 10^6/uL (3.72-5.28); RED CELL DISTRIBUTION WIDTH 13.6 % (11.5-14.0); SEGMENTED NEUTROPHILS % (AUTO) 92.2 % (42-78); WHITE BLOOD COUNT 8.3 10^3/uL (4.0-10.5)
[2017-06-10 06:30] LABS: ANION GAP 9 (5-19); BLOOD UREA NITROGEN 15 mg/dL (7-20); CALCIUM 9.6 mg/dL (8.4-10.2); CARBON DIOXIDE 26 mmol/L (22-30); CHLORIDE 104 mmol/L (98-107); CREATININE RESULT 0.62 mg/dL (0.52-1.25); GLUCOSE 135 mg/dL (75-110); POTASSIUM 4.5 mmol/L (3.6-5.0); SODIUM 138.9 mmol/L (137-145)
[2017-06-10] MEDS: LANSOPRAZOLE 30 MG TAB.RAP.DR PO SCH ×2 (06:52→17:23)
[2017-06-10] MEDS: OXYCODONE HCL IR 5 MG TABLET PO PRN ×2 (07:32→17:23)
[2017-06-10] MEDS: IPRATROPIUM/ALBUTEROL 0.5-2.5 MG/3 ML AMPUL NEB SCH ×3 (07:45→20:36)
[2017-06-10] MEDS ORDERED: INFLUENZA ADLT QUAD (36MOS+) 2017-18 VAC 0.5 ML SYR IM PRN (08:05)
--- NOTE | 2017-06-10 10:57 | EKG REPORT ---
SEVERITY:- BORDERLINE ECG - SINUS RHYTHM PROBABLE LEFT ATRIAL ABNORMALITY BORDERLINE T WAVE ABNORMALITIES : Confirmed by: Francine Berger MD 10-Jun-2017 10:56:50
[2017-06-10] MEDS: ALBUTEROL SULFATE 0.083% NEB 2.5 MG/3 ML AMPUL NEB PRN ×2 (11:49→18:25)
[2017-06-10] MEDS: CEFTRIAXONE 1 GM/D5W RTU 1 GM/50 ML RTUPB IV SCH (12:55)
[2017-06-10] MEDS: METHYLPREDNISOLONE INJ 40 MG/1 ML SDV IV SCH ×2 (12:56→17:23)
[2017-06-10] MEDS: ENOXAPARIN SODIUM INJ 40 MG/0.4 ML DISP.SYRIN SUBCUT SCH (12:57)
[2017-06-10] MEDS: AZITHROMYCIN 500 MG in DEXTROSE 5%-WATER 250 ML IV SCH (14:03)
[2017-06-10] MEDS ORDERED: ALBUTEROL SULFATE 0.083% NEB 2.5 MG/3 ML AMPUL NEB PRN (17:27)
[2017-06-10] MEDS: GABAPENTIN 400 MG CAPSULE PO SCH (17:49)
[2017-06-10] MEDS: CLONIDINE HCL 0.1 MG TABLET PO SCH (17:50)
[2017-06-10] MEDS ORDERED: (PENDING PHARMACY ID) (Methadone Hcl [Methadone Hcl] 5 MG) PO SCH (22:00)
[2017-06-10] MEDS: SERTRALINE HCL 50 MG TABLET PO SCH (22:00)
[2017-06-10] MEDS: OXYCODONE HCL IR 5 MG TABLET PO SCH (22:00)
[2017-06-10] MEDS: METHADONE HCL 10 MG TABLET PO SCH (22:00)
[2017-06-11] MEDS: GABAPENTIN 400 MG CAPSULE PO SCH ×4 (00:16→17:50)
[2017-06-11] MEDS: METHYLPREDNISOLONE INJ 40 MG/1 ML SDV IV SCH ×3 (01:48→17:51)
[2017-06-11] MEDS: ALBUTEROL SULFATE 0.083% NEB 2.5 MG/3 ML AMPUL NEB PRN (02:29)
[2017-06-11] MEDS: LANSOPRAZOLE 30 MG TAB.RAP.DR PO SCH ×2 (06:29→17:51)
[2017-06-11] MEDS: METHADONE HCL 10 MG TABLET PO SCH ×3 (06:37→23:01)
[2017-06-11] MEDS: DIAZEPAM 5 MG TABLET PO PRN (07:19)
[2017-06-11] MEDS: IPRATROPIUM/ALBUTEROL 0.5-2.5 MG/3 ML AMPUL NEB SCH ×3 (08:21→20:09)
[2017-06-11] MEDS: CEFTRIAXONE 1 GM/D5W RTU 1 GM/50 ML RTUPB IV SCH (09:32)
[2017-06-11] MEDS: OXYCODONE HCL IR 5 MG TABLET PO SCH ×2 (09:33→23:02)
[2017-06-11] MEDS: LOSARTAN POTASSIUM 50 MG TABLET PO SCH (09:34)
[2017-06-11] MEDS: CLONIDINE HCL 0.1 MG TABLET PO SCH ×3 (09:35→17:50)
[2017-06-11] MEDS: ENOXAPARIN SODIUM INJ 40 MG/0.4 ML DISP.SYRIN SUBCUT SCH (09:35)
[2017-06-11] MEDS: AZITHROMYCIN 500 MG in DEXTROSE 5%-WATER 250 ML IV SCH (11:56)
--- NOTE | 2017-06-11 16:03 | PDOC PROGRESS REPORT ---
Subjective Progress Note for:: 06/11/17 Subjective:: Patient reports that her breathing has improved. Patient states she is able to take deeper breaths. Patient states that she feels much better once her home medications were administered to her yesterday. Patient reports that she hopes that she is discharged from the hospital by Tuesday because she has an appointment with her pain management doctor. Physical Exam Vital Signs: Temp Pulse Resp BP Pulse Ox 98.1 F 85 18 137/51 H 93 06/11/17 11:39 06/11/17 14:28 06/11/17 11:39 06/11/17 11:39 06/11/17 11:39 Intake & Output 06/10/17 06/11/17 06/12/17 06:59 06:59 06:59 Intake Total 3000 Output Total 200 Balance 2800 General appearance: PRESENT: no acute distress, well-developed, well-nourished Head exam: PRESENT: atraumatic, normocephalic Eye exam: PRESENT: conjunctiva pink, EOMI. ABSENT: scleral icterus Ear exam: PRESENT: normal external ear exam Mouth exam: PRESENT: moist, tongue midline Neck exam: ABSENT: carotid bruit, JVD, lymphadenopathy, thyromegaly Respiratory exam: PRESENT: other - Prolonged expiratory phase, positive for wheezing, positive for coarse breath sounds, diminished at bases, accessory muscle use Cardiovascular exam: PRESENT: RRR. ABSENT: diastolic murmur, rubs, systolic murmur Pulses: PRESENT: normal dorsalis pedis pul Vascular exam: PRESENT: normal capillary refill GI/Abdominal exam: PRESENT: normal bowel sounds, soft. ABSENT: distended, guarding, mass, organolmegaly, rebound, tenderness Rectal exam: PRESENT: deferred Extremities exam: PRESENT: full ROM. ABSENT: calf tenderness, clubbing, pedal edema Neurological exam: PRESENT: alert, awake, oriented to person, oriented to place , oriented to time, oriented to situation, CN II-XII grossly intact. ABSENT: motor sensory deficit Psychiatric exam: PRESENT: appropriate affect, normal mood. ABSENT: homicidal ideation, suicidal ideation Skin exam: PRESENT: dry, intact, warm. ABSENT: cyanosis, rash Results Laboratory Results: 06/10/17 06:10 06/10/17 06:10 Impressions: Chest X-Ray 06/09/17 21:21 IMPRESSION: NO ACUTE RADIOGRAPHIC FINDING IN THE CHEST. Assessment & Plan - Diagnosis (1) Acute respiratory failure with hypoxia Is this a current diagnosis for this admission?: Yes Plan: Secondary to COPD exacerbation: We will continue steroids, breathing treatments , and antibiotics. (2) COPD exacerbation Is this a current diagnosis for this admission?: Yes Plan: We will continue steroids, breathing treatments, and antibiotics. Patient is demonstrating improvement. (3) Chronic back pain Qualifiers: Back pain location: low back pain Sciatica laterality: sciatica laterality unspecified Is this a current diagnosis for this admission?: Yes Plan: Patient's home medications have been resumed. Patient reports that she has an appointment with pain management on Tuesday. (4) Hyponatremia Is this a current diagnosis for this admission?: Yes Plan: Resolved (5) Hyperglycemia Is this a current diagnosis for this admission?: Yes Plan: We will check hemoglobin A1c. Most likely secondary to steroids. (6) Tobacco dependency Is this a current diagnosis for this admission?: Yes Plan: Encourage discontinuation of tobacco use. Patient this morning states that she plans to stop smoking. Patient states that she does not feel that her life will be long if she continues to smoke. (7) Depression Qualifiers: Depression Type: unspecified Qualified Code(s): F32.9 - Major depressive disorder, single episode, unspecified Is this a current diagnosis for this admission?: Yes Plan: We will continue patient's home medication (8) HTN (hypertension) Qualifiers: Hypertension type: essential hypertension Qualified Code(s): I10 - Essential (primary) hypertension Is this a current diagnosis for this admission?: Yes Plan: We will continue patient's home medications. (9) DVT prophylaxis Is this a current diagnosis for this admission?: Yes Plan: Lovenox - Time Time Spent with patient: 15-24 minutes
[2017-06-11] MEDS: SERTRALINE HCL 50 MG TABLET PO SCH (23:01)
[2017-06-12] MEDS: GABAPENTIN 400 MG CAPSULE PO SCH ×5 (00:31→23:28)
[2017-06-12] MEDS: METHYLPREDNISOLONE INJ 40 MG/1 ML SDV IV SCH (05:08)
[2017-06-12 05:11] LABS: ABSOLUTE LYMPHOCYTES (AUTO) 1.6 10^3/uL (0.5-4.7); ABSOLUTE MONOCYTES (AUTO) 0.9 10^3/uL (0.1-1.4); ABSOLUTE NEUT (AUTO) 8.6 10^3/uL (1.7-8.2); HEMATOCRIT 37.9 % (36.0-47.0); HEMOGLOBIN 12.4 g/dL (12.0-15.5); HGB HCT DIFFERENCE -0.7; LYMPHOCYTES % (AUTO) 14.2 % (13-45); MEAN CORPUSCULAR HEMOGLOBIN 29.9 pg (27.0-33.4); MEAN CORPUSCULAR HGB CONC 32.8 g/dL (32.0-36.0); MEAN CORPUSCULAR VOLUME 91 fl (80-97); MONOCYTES % (AUTO) 8.4 % (3-13); RED BLOOD COUNT 4.15 10^6/uL (3.72-5.28); RED CELL DISTRIBUTION WIDTH 13.7 % (11.5-14.0); SEGMENTED NEUTROPHILS % (AUTO) 77.4 % (42-78); WHITE BLOOD COUNT 11.2 10^3/uL (4.0-10.5)
[2017-06-12 05:23] LABS: ANION GAP 6 (5-19); BLOOD UREA NITROGEN 22 mg/dL (7-20); CALCIUM 9.7 mg/dL (8.4-10.2); CARBON DIOXIDE 34 mmol/L (22-30); CHLORIDE 99 mmol/L (98-107); CREATININE RESULT 0.77 mg/dL (0.52-1.25); GLUCOSE 95 mg/dL (75-110); POTASSIUM 4.9 mmol/L (3.6-5.0); SODIUM 138.6 mmol/L (137-145)
[2017-06-12] MEDS: METHADONE HCL 10 MG TABLET PO SCH ×3 (06:13→21:10)
[2017-06-12] MEDS: LANSOPRAZOLE 30 MG TAB.RAP.DR PO SCH ×2 (06:13→17:06)
[2017-06-12] MEDS: GUAIFENESIN SYRP 200 MG/10 ML UDC PO PRN ×2 (06:20→22:05)
[2017-06-12] MEDS: IPRATROPIUM/ALBUTEROL 0.5-2.5 MG/3 ML AMPUL NEB SCH ×3 (08:24→20:19)
[2017-06-12] MEDS: ENOXAPARIN SODIUM INJ 40 MG/0.4 ML DISP.SYRIN SUBCUT SCH (09:34)
[2017-06-12] MEDS: CLONIDINE HCL 0.1 MG TABLET PO SCH ×3 (09:34→17:05)
[2017-06-12] MEDS: OXYCODONE HCL IR 5 MG TABLET PO SCH ×2 (09:34→21:10)
[2017-06-12] MEDS: CEFTRIAXONE 1 GM/D5W RTU 1 GM/50 ML RTUPB IV SCH (09:35)
[2017-06-12] MEDS: LOSARTAN POTASSIUM 50 MG TABLET PO SCH (09:35)
[2017-06-12] MEDS: AZITHROMYCIN 500 MG in DEXTROSE 5%-WATER 250 ML IV SCH (11:56)
[2017-06-12] MEDS: METHYLPREDNISOLONE INJ 125 MG/2 ML SDV IV SCH ×2 (13:18→21:09)
--- NOTE | 2017-06-12 14:38 | PDOC PROGRESS REPORT ---
Subjective Progress Note for:: 06/12/17 Subjective:: Pt states that she is able to take deeper breaths. Physical Exam Vital Signs: Temp Pulse Resp BP Pulse Ox 98.3 F 79 18 118/64 97 06/12/17 12:28 06/12/17 12:28 06/12/17 12:28 06/12/17 12:28 06/12/17 12:28 Intake & Output 06/11/17 06/12/17 06/13/17 06:59 06:59 06:59 Intake Total 3000 1503 Output Total 200 1650 Balance 2800 -147 General appearance: PRESENT: no acute distress, well-developed, well-nourished Head exam: PRESENT: atraumatic, normocephalic Eye exam: PRESENT: conjunctiva pink, EOMI, PERRLA. ABSENT: scleral icterus Ear exam: PRESENT: normal external ear exam Mouth exam: PRESENT: moist, tongue midline Neck exam: ABSENT: carotid bruit, JVD, lymphadenopathy, thyromegaly Respiratory exam: PRESENT: accessory muscle use, decreased breath sounds - at bases, prolonged expiratory phas, wheezes Cardiovascular exam: PRESENT: RRR. ABSENT: diastolic murmur, rubs, systolic murmur Pulses: PRESENT: normal dorsalis pedis pul Vascular exam: PRESENT: normal capillary refill GI/Abdominal exam: PRESENT: normal bowel sounds, soft. ABSENT: distended, guarding, mass, organolmegaly, rebound, tenderness Rectal exam: PRESENT: deferred Extremities exam: PRESENT: full ROM. ABSENT: calf tenderness, clubbing, pedal edema Neurological exam: PRESENT: alert, awake, oriented to person, oriented to place , oriented to time, oriented to situation, CN II-XII grossly intact. ABSENT: motor sensory deficit Psychiatric exam: PRESENT: appropriate affect, normal mood. ABSENT: homicidal ideation, suicidal ideation Skin exam: PRESENT: dry, intact, warm. ABSENT: cyanosis, rash Results Laboratory Results: 06/12/17 04:37 06/12/17 04:37 06/12/17 06/12/17 04:37 04:37 WBC 11.2 H RBC 4.15 Hgb 12.4 Hct 37.9 MCV 91 MCH 29.9 MCHC 32.8 RDW 13.7 Plt Count 281 Seg Neutrophils % 77.4 Lymphocytes % 14.2 Monocytes % 8.4 Eosinophils % 0.0 Basophils % 0.0 Absolute Neutrophils 8.6 H Absolute Lymphocytes 1.6 Absolute Monocytes 0.9 Absolute Eosinophils 0.0 Absolute Basophils 0.0 Sodium 138.6 Potassium 4.9 Chloride 99 Carbon Dioxide 34 H Anion Gap 6 BUN 22 H Creatinine 0.77 Est GFR ( Amer) > 60 Est GFR (Non-Af Amer) > 60 Glucose 95 Calcium 9.7 Impressions: Chest X-Ray 06/09/17 21:21 IMPRESSION: NO ACUTE RADIOGRAPHIC FINDING IN THE CHEST. Assessment & Plan - Diagnosis (1) Acute respiratory failure with hypoxia Is this a current diagnosis for this admission?: Yes Plan: Secondary to COPD exacerbation: We will continue steroids, breathing treatments , and antibiotics. (2) COPD exacerbation Is this a current diagnosis for this admission?: Yes Plan: We will continue steroids, breathing treatments, and antibiotics. Patient has an appointment with pain management on Tuesday we will try to see if patient is able to be discharged on Tuesday. (3) Chronic back pain Qualifiers: Back pain location: low back pain Sciatica laterality: sciatica laterality unspecified Is this a current diagnosis for this admission?: Yes Plan: Patient's home medications have been resumed. Patient reports that she has an appointment with pain management on Tuesday. (4) Hyponatremia Is this a current diagnosis for this admission?: Yes Plan: Resolved (5) Hyperglycemia Is this a current diagnosis for this admission?: Yes Plan: SSI (6) Tobacco dependency Is this a current diagnosis for this admission?: Yes Plan: Encourage discontinuation of tobacco use. (7) Depression Qualifiers: Depression Type: unspecified Qualified Code(s): F32.9 - Major depressive disorder, single episode, unspecified Is this a current diagnosis for this admission?: Yes Plan: We will continue patient's home medication (8) HTN (hypertension) Qualifiers: Hypertension type: essential hypertension Qualified Code(s): I10 - Essential (primary) hypertension Is this a current diagnosis for this admission?: Yes Plan: We will continue patient's home medications. (9) DVT prophylaxis Is this a current diagnosis for this admission?: Yes Plan: Lovenox
[2017-06-12] MEDS: SERTRALINE HCL 50 MG TABLET PO SCH (21:10)
[2017-06-12] MEDS: DIAZEPAM 5 MG TABLET PO PRN (23:49)
[2017-06-13 04:44] LABS: ABSOLUTE LYMPHOCYTES (AUTO) 0.9 10^3/uL (0.5-4.7); ABSOLUTE MONOCYTES (AUTO) 0.6 10^3/uL (0.1-1.4); ABSOLUTE NEUT (AUTO) 8.6 10^3/uL (1.7-8.2); BASOPHILS % (AUTO) 0.2 % (0-2); HEMATOCRIT 38.7 % (36.0-47.0); HEMOGLOBIN 12.9 g/dL (12.0-15.5); LYMPHOCYTES % (AUTO) 9.1 % (13-45); MEAN CORPUSCULAR HEMOGLOBIN 30.5 pg (27.0-33.4); MEAN CORPUSCULAR HGB CONC 33.3 g/dL (32.0-36.0); MEAN CORPUSCULAR VOLUME 91 fl (80-97); MONOCYTES % (AUTO) 5.9 % (3-13); RED BLOOD COUNT 4.23 10^6/uL (3.72-5.28); RED CELL DISTRIBUTION WIDTH 13.4 % (11.5-14.0); SEGMENTED NEUTROPHILS % (AUTO) 84.8 % (42-78); WHITE BLOOD COUNT 10.2 10^3/uL (4.0-10.5)
[2017-06-13 04:57] LABS: ANION GAP 5 (5-19); BLOOD UREA NITROGEN 27 mg/dL (7-20); CALCIUM 9.8 mg/dL (8.4-10.2); CARBON DIOXIDE 34 mmol/L (22-30); CHLORIDE 99 mmol/L (98-107); CREATININE RESULT 0.75 mg/dL (0.52-1.25); GLUCOSE 122 mg/dL (75-110); SODIUM 137.9 mmol/L (137-145)
[2017-06-13] MEDS: GABAPENTIN 400 MG CAPSULE PO SCH ×2 (05:39→13:32)
[2017-06-13] MEDS: METHADONE HCL 10 MG TABLET PO SCH ×2 (05:39→13:27)
[2017-06-13] MEDS: LANSOPRAZOLE 30 MG TAB.RAP.DR PO SCH (05:40)
[2017-06-13] MEDS: METHYLPREDNISOLONE INJ 125 MG/2 ML SDV IV SCH ×2 (05:40→13:34)
[2017-06-13] MEDS: IPRATROPIUM/ALBUTEROL 0.5-2.5 MG/3 ML AMPUL NEB SCH ×2 (07:52→14:31)
[2017-06-13] MEDS: CEFTRIAXONE 1 GM/D5W RTU 1 GM/50 ML RTUPB IV SCH (09:01)
[2017-06-13] MEDS: ENOXAPARIN SODIUM INJ 40 MG/0.4 ML DISP.SYRIN SUBCUT SCH (09:01)
[2017-06-13] MEDS: CLONIDINE HCL 0.1 MG TABLET PO SCH ×2 (09:02→13:32)
[2017-06-13] MEDS: OXYCODONE HCL IR 5 MG TABLET PO SCH (09:03)
[2017-06-13] MEDS: LOSARTAN POTASSIUM 50 MG TABLET PO SCH (09:03)
[2017-06-13] MEDS: AZITHROMYCIN 500 MG in DEXTROSE 5%-WATER 250 ML IV SCH (10:35)
--- NOTE | 2017-06-13 11:24 | PDOC DISCHARGE SUMMARY ---
General - Admit/Disc Date/PCP Admission Date/Primary Care Provider: 06/10/17 01:38 Discharge Date: 06/13/17 - Discharge Diagnosis (1) Acute respiratory failure with hypoxia Is this a current diagnosis for this admission?: Yes Summary: Patient was admitted to the hospital for COPD exacerbation. Patient was placed on steroids, breathing treatments, and antibiotics. Patient's respiratory function continued to improve throughout hospitalization and therefore patient was transitioned over to oral medications. (2) COPD exacerbation Is this a current diagnosis for this admission?: Yes Summary: Patient was admitted to the hospital for COPD exacerbation was placed on steroids, breathing treatments, and antibiotics. Patient's respiratory function continued to improve and patient was transitioned over to oral medications. (3) Chronic back pain Is this a current diagnosis for this admission?: Yes Summary: Patient was continued on her home medications here in the hospital. Patient states that she has an appointment with pain management that she does not want to miss. Patient was told to make sure she keeps with that appointment in order to get her medications. (4) Hyponatremia Is this a current diagnosis for this admission?: Yes Summary: Resolved (5) Hyperglycemia Is this a current diagnosis for this admission?: Yes Summary: Secondary to steroids: Supportive care no intervention required. Hemoglobin A1c is 5 (6) Tobacco dependency Is this a current diagnosis for this admission?: Yes Summary: Encourage patient to discontinue tobacco use. (7) Depression Is this a current diagnosis for this admission?: Yes Summary: Continue current home medications. (8) HTN (hypertension) Is this a current diagnosis for this admission?: Yes Summary: Continue current antihypertensive medication. - Additional Information Resuscitation Status: Full Code Discharge Diet: Cardiac Discharge Activity: Activity As Tolerated Home Medications: Albuterol Sulfate [Albuterol Sulfate 2.5mg/3 mL] 1 vial NEB Q4HP PRN 06/10/17 Clonidine HCl [Catapres 0.1 mg Tablet] 0.1 mg PO TID 06/10/17 Diazepam [Valium 5 mg Tablet] 5 mg PO TIDP PRN 06/10/17 Gabapentin [Neurontin] 800 mg PO QID 06/10/17 Losartan Potassium [Cozaar 50 mg Tablet] 50 mg PO DAILY 06/10/17 Methadone HCl 5 mg PO Q8 06/10/17 Oxycodone HCl [Oxy-Ir 5 mg Tablet] 10 mg PO Q12 06/10/17 Promethazine HCl [Phenergan 25 mg Tablet] 25 mg PO Q6HP PRN 06/10/17 Sertraline HCl [Zoloft] 100 mg PO QHS 06/10/17 Albuterol Sulfate [Ventolin Hfa] 1 - 2 puff IH Q4 PRN #1 hfa.aer.ad 06/13/17 Fluticasone/Salmeterol [Advair 250-50 Diskus 28 dose] 1 inh IH Q12H #1 inhaler 06/13/17 Levofloxacin [Levaquin 500 mg Tablet] 500 mg PO DAILY #4 tablet 06/13/17 Methylprednisolone [Medrol Dosepack (4 mg/Tab) 21 Tab/Dosepak] 4 mg PO ASDIR PRN #21 tab.ds.pk 06/13/17 Tiotropium [place] [Spiriva Handihaler 18 mcg/dose (30 Dose)] 1 cap IH DAILY # 30 capsule 06/13/17 History of Present Illness Patient complains of: Shortness of breath History of Present Illness: CASE DASILVA is a 72 year old female presents to emergency department with complaint of shortness of breath. Hospital Course Hospital Course: Patient is a 72-year-old female that was admitted to our hospital due to shortness of breath. Patient states that her shortness of breath has continued to worsen over the last few days. Patient has continued to smoke during this illness as well. Patient was admitted to the hospital for COPD exacerbation and was placed on steroids, breathing treatments, and antibiotics. Patient demonstrated significant improvement and therefore was transitioned to oral medications. Patient was noted to have hyponatremia at time of admission however this resolved during hospital stay. Patient was also noted to have elevated blood glucose but this was secondary to steroids. Patient's hemoglobin A1c was 5. Patient was continued on her home medications however stressed the importance of being able to get out of the hospital before Tuesday so that she could keep her pain medicine appointment. Patient has done well throughout hospitalization and stable for discharge. Physical Exam Vital Signs: Temp Pulse Resp BP Pulse Ox 98.6 F 84 22 H 149/85 H 95 06/13/17 07:27 06/13/17 07:52 06/13/17 07:52 06/13/17 07:27 06/13/17 07:52 Intake & Output 1006/13/17 06/14/17 06:59 06:59 06:59 Intake Total 1503 999 Output Total 1650 Balance -147 999 Weight 70 kg General appearance: PRESENT: no acute distress, well-developed, well-nourished Head exam: PRESENT: atraumatic, normocephalic Eye exam: PRESENT: conjunctiva pink, EOMI. ABSENT: scleral icterus Ear exam: PRESENT: normal external ear exam Mouth exam: PRESENT: moist, tongue midline Neck exam: ABSENT: carotid bruit, JVD, lymphadenopathy, thyromegaly Respiratory exam: PRESENT: wheezes - Slight prolonged expiratory phase however much improved from prior visit. Cardiovascular exam: PRESENT: RRR. ABSENT: diastolic murmur, rubs, systolic murmur Pulses: PRESENT: normal dorsalis pedis pul Vascular exam: PRESENT: normal capillary refill GI/Abdominal exam: PRESENT: normal bowel sounds, soft. ABSENT: distended, guarding, mass, organolmegaly, rebound, tenderness Rectal exam: PRESENT: deferred Extremities exam: PRESENT: full ROM. ABSENT: calf tenderness, clubbing, pedal edema Neurological exam: PRESENT: alert, awake, oriented to person, oriented to place , oriented to time, oriented to situation, CN II-XII grossly intact. ABSENT: motor sensory deficit Psychiatric exam: PRESENT: appropriate affect, normal mood. ABSENT: homicidal ideation, suicidal ideation Skin exam: PRESENT: dry, intact, warm. ABSENT: cyanosis, rash Results Laboratory Results: 06/13/17 04:13 06/13/17 04:13 06/13/17 06/13/17 04:13 04:13 WBC 10.2 RBC 4.23 Hgb 12.9 Hct 38.7 MCV 91 MCH 30.5 MCHC 33.3 RDW 13.4 Plt Count 287 Seg Neutrophils % 84.8 H Lymphocytes % 9.1 L Monocytes % 5.9 Eosinophils % 0.0 Basophils % 0.2 Absolute Neutrophils 8.6 H Absolute Lymphocytes 0.9 Absolute Monocytes 0.6 Absolute Eosinophils 0.0 Absolute Basophils 0.0 Sodium 137.9 Potassium 5.0 Chloride 99 Carbon Dioxide 34 H Anion Gap 5 BUN 27 H Creatinine 0.75 Est GFR ( Amer) > 60 Est GFR (Non-Af Amer) > 60 Glucose 122 H Calcium 9.8 Impressions: Chest X-Ray 06/09/17 21:21 IMPRESSION: NO ACUTE RADIOGRAPHIC FINDING IN THE CHEST. Plan Time Spent: Greater than 30 Minutes - 37 mins
[2017-06-13 13:56] VITALS: BP 148/70
[2017-06-14] MEDS ORDERED: AZITHROMYCIN 250 MG TABLET PO SCH (10:00)
== END 2017-06-13 14:48 | disposition home or self-care (01) | DRG 190 ==
LOC: ER 20:51 → EH 06-10 01:38 → UNDOADMIN 06-10 02:23 → 3N 06-10 05:30
PROVIDERS: ADMIT Family Medicine; ATTEND Family Medicine
PROC: 3E0F73Z Introduction of Anti-inflammatory into Respiratory Tract, Via Natural or Artificial Opening (ICD-10-PCS; principal; 2017-06-10)
PROC: 3E0234Z Introduction of Serum, Toxoid and Vaccine into Muscle, Percutaneous Approach (ICD-10-PCS; 2017-06-13)
DX: J44.1 Chronic obstructive pulmonary disease with (acute) exacerbation (principal); J96.01 Acute respiratory failure with hypoxia; E87.1 Hypo-osmolality and hyponatremia; G89.29 Other chronic pain; M54.9 Dorsalgia, unspecified; R73.9 Hyperglycemia, unspecified; T38.0X5A Adverse effect of glucocorticoids and synthetic analogues, initial encounter; F32.9 Major depressive disorder, single episode, unspecified; I10 Essential (primary) hypertension; F17.210 Nicotine dependence, cigarettes, uncomplicated; E78.5 Hyperlipidemia, unspecified; F11.90 Opioid use, unspecified, uncomplicated; Z79.899 Other long term (current) drug therapy; Z23 Encounter for immunization; Z99.81 Dependence on supplemental oxygen; Z86.711 Personal history of pulmonary embolism; Z85.118 Personal history of other malignant neoplasm of bronchus and lung; Z90.710 Acquired absence of both cervix and uterus; Z90.2 Acquired absence of lung [part of]; Z60.2 Problems related to living alone; Z82.61 Family history of arthritis; Z83.6 Family history of other diseases of the respiratory system; Z82.49 Family history of ischemic heart disease and other diseases of the circulatory system; Z82.3 Family history of stroke; Z83.3 Family history of diabetes mellitus; Z80.7 Family history of other malignant neoplasms of lymphoid, hematopoietic and related tissues; Z80.0 Family history of malignant neoplasm of digestive organs; Z80.1 Family history of malignant neoplasm of trachea, bronchus and lung
CPT/HCPCS: 36415; 71010; 80048; 80076; 82803; 82962; 83036; 83735; 84484; 85025; 87040; 87070; 87077; 87186; 87205; 87804; 90686; 93005; 93010; 94640; 94799; 96361; 96365; 96367; 99291; J0456; J0696; J1650; J2920; J2930; J3475; J3490; J7030; J7060; J7620

== ENCOUNTER 2017-06-25 18:32 | Emergency (ER) | payer MEDICARE, OTHER ==
--- NOTE | 2017-06-25 19:18 | ER Document Report ---
HPI - HPI Patient complains to provider of: chronic pain that 5mcg/hr x 2 patches not helping Onset/Duration: Persistent Quality of pain: Achy, Throbbing Pain Level: 3 Context: 72 yo female brought in by EMS bc her daughter doesn't drive c/o Bunorphorine patches prescribed by [facility] are not working despite putting 2 on per their instructions. They told her to come to ER. Patient reports that she has chronic leg pain x4 years to her bilateral LE's due to neuropathy. They used to give her oxycodone 10mg and methadone which worked. No new or different symtpoms. Just can't stand the pain anymore. Associated Symptoms: None Exacerbated by: Denies Relieved by: Denies - ROS ROS below otherwise negative: Yes Systems Reviewed and Negative: Yes All other systems reviewed and negative - DERM Skin Color: Normal Past Medical History - General Information source: Patient - Social History Smoking Status: Former Smoker Frequency of alcohol use: None Drug Abuse: None Family History: Arthritis, CAD, COPD, CVA, Hyperlipidemia, Hypertension - Past Medical History Cardiac Medical History: Reports: Hx Hypercholesterolemia - History of, Hx Hypertension, Hx Pulmonary Embolism - No longer on Xarelto Pulmonary Medical History: Reports: Hx Asthma, Hx COPD Malignancy Medical History: Reports: Hx Lung Cancer - upper right lobe Musculoskeltal Medical History: Reports Hx Arthritis, Reports Hx Musculoskeletal Deformity, Reports Hx Musculoskeletal Trauma Psychiatric Medical History: Reports: Hx Depression Past Surgical History: Reports: Hx Hysterectomy, Hx Orthopedic Surgery - 4 back surgeries, Other - Partial right lobectomy for lung cancer. Multiple spinal surgeries. - Immunizations Hx Diphtheria, Pertussis, Tetanus Vaccination: No Hx Pneumococcal Vaccination: 06/05/11 Vertical Provider Document - CONSTITUTIONAL Agree With Documented VS: Yes Exam Limitations: No Limitations General Appearance: No Apparent Distress - INFECTION CONTROL TRAVEL OUTSIDE OF THE [place] IN LAST 30 DAYS: No - HEENT HEENT: Normocephalic - NECK Neck: Supple - RESPIRATORY O2 Sat by Pulse Oximetry: 92 - MUSCULOSKELETAL/EXTREMETIES Musculoskeletal/Extremeties: MAEW, FROM, Non-Tender - no point tenderness, negative florencia's, 2+ dp bilaterally, No Edema - NEURO Level of Consciousness: Awake, Alert, Appropriate Motor/Sensory: No Motor Deficit, No Sensory Deficit - DERM Integumentary: Warm, Dry, No Rash Course - Re-evaluation Re-evalutation: 06/25/17 19:38 consult Art Almaguer who states to prescribe the oxycodone which worked in the past and to see them tuesday at 8 am. - Vital Signs Vital signs: Temp Pulse Resp BP Pulse Ox 97.6 F 93 16 150/99 H 92 06/25/17 18:36 06/25/17 18:36 06/25/17 18:36 06/25/17 18:36 06/25/17 18:36 Discharge - Discharge Clinical Impression: chronic peripheral neuropathy pain Condition: Good Disposition: HOME, SELF-CARE Instructions: Neuropathy ([facility]), Oral Narcotic Medication ([facility]) Additional Instructions: see dr almaguer on tuesday at 8 am do NOT replace the bunorphorine patches that are not working to er any concerns tomorrow Please complete the patient satisfaction survey if you get one, and return it.. If you do not receive a survey, then you can go to the [facility] website, [email or web address] and place your comments about your very good care. Thank you very much. It was a pleasure being your medical provider today. Prescriptions: Oxycodone HCl/Acetaminophen [Percocet 10-325 Mg Tablet] 1 each PO Q4HP PRN #20 tablet PRN Reason: Referrals: BEVERLY ALMAGUER MD [ACTIVE STAFF] - 06/27/17 (8 am )
[2017-06-25] MEDS ORDERED: OXYCODONE-ACETAMINOPHEN 5-325 MG TABLET PO ONE (19:44)
[2017-06-25 20:06] VITALS: BP 183/75
== END 2017-06-25 20:06 | disposition home or self-care (01) ==
LOC: ER 18:32
DX: G62.9 Polyneuropathy, unspecified (principal); G57.93 Unspecified mononeuropathy of bilateral lower limbs; M79.604 Pain in right leg; M79.605 Pain in left leg; G89.29 Other chronic pain; Z79.899 Other long term (current) drug therapy
CPT/HCPCS: 99283; A9270

== ENCOUNTER 2017-08-28 12:47 | Emergency (ER) | payer MEDICARE, OTHER ==
[2017-08-28 13:26] LABS: APPEARANCE,URINE CLOUDY; BILIRUBIN,URINE NEGATIVE (NEGATIVE); GLUCOSE, URINE NEGATIVE (NEGATIVE); KETONES,URINE NEGATIVE (NEGATIVE); LEUKOCYTE ESTERASE,URINE LARGE (NEGATIVE); NITRITE,URINE POSITIVE (NEGATIVE); PROTEIN,URINE >=500 mg/dL (NEGATIVE); URINE SPECIFIC GRAVITY 1.018; UROBILINOGEN,URINE NEGATIVE mg/dL (<2.0)
[2017-08-28 13:40] LABS: URINE BARBITURATES SCREEN NEGATIVE; URINE METHADONE SCREEN NEGATIVE; URINE OPIATES LOW UNCONFIRMED POSITIVE; URINE PHENCYCLIDINE SCREEN NEGATIVE
[2017-08-28 14:12] LABS: ABSOLUTE EOSINOPHILS # (AUTO) 0.1 10^3/uL (0.0-0.6); ABSOLUTE LYMPHOCYTES (AUTO) 1.6 10^3/uL (0.5-4.7); ABSOLUTE MONOCYTES (AUTO) 0.5 10^3/uL (0.1-1.4); ABSOLUTE NEUT (AUTO) 5.2 10^3/uL (1.7-8.2); BASOPHILS % (AUTO) 0.7 % (0-2); EOSINOPHILS % (AUTO) 1.3 % (0-6); HEMATOCRIT 47.1 % (36.0-47.0); HEMOGLOBIN 15.8 g/dL (12.0-15.5); HGB HCT DIFFERENCE 0.3; LYMPHOCYTES % (AUTO) 21.8 % (13-45); MEAN CORPUSCULAR HEMOGLOBIN 29.3 pg (27.0-33.4); MEAN CORPUSCULAR HGB CONC 33.5 g/dL (32.0-36.0); MEAN CORPUSCULAR VOLUME 88 fl (80-97); MONOCYTES % (AUTO) 6.7 % (3-13); RED BLOOD COUNT 5.38 10^6/uL (3.72-5.28); RED CELL DISTRIBUTION WIDTH 13.8 % (11.5-14.0); SEGMENTED NEUTROPHILS % (AUTO) 69.5 % (42-78); WHITE BLOOD COUNT 7.5 10^3/uL (4.0-10.5)
[2017-08-28 14:28] LABS: ALANINE AMINOTRANSFERASE 22 U/L (9-52); ALBUMIN 4.1 g/dL (3.5-5.0); ALKALINE PHOSPHATASE 86 U/L (38-126); ANION GAP 11 (5-19); ASPARTATE AMINO TRANSFERASE 22 U/L (14-36); BILIRUBIN,DIRECT 0.3 mg/dL (0.0-0.4); BILIRUBIN,TOTAL 0.6 mg/dL (0.2-1.3); BLOOD UREA NITROGEN 16 mg/dL (7-20); CALCIUM 10.8 mg/dL (8.4-10.2); CARBON DIOXIDE 29 mmol/L (22-30); CHLORIDE 104 mmol/L (98-107); CREATININE RESULT 0.81 mg/dL (0.52-1.25); GLUCOSE 82 mg/dL (75-110); POTASSIUM 4.2 mmol/L (3.6-5.0); SODIUM 143.6 mmol/L (137-145); TOTAL PROTEIN 7.1 g/dL (6.3-8.2)
[2017-08-28 14:30] LABS: ALCOHOL < 10 mg/dL (NONE DETECTED)
[2017-08-28] MEDS ORDERED: CEFTRIAXONE INJ 1000 MG VIAL IM ONE (15:33)
[2017-08-28] MEDS ORDERED: LIDOCAINE 1% INJ-PF (10 MG/ML) 30 ML SDV INFIL ONE (15:33)
[2017-08-28] MEDS ORDERED: DULOXETINE HCL 30 MG CAPSULE.DR PO SCH (15:45)
--- NOTE | 2017-08-28 16:18 | PSYCHOLOGICAL NOTE ---
Psych Note - Psych Note Psych Note: Reason for Consult: Suicidal Ideation Consent Permissions: Tete Jordan, granddaughter [phone] Patient is a 72-year-old female who was brought into the Emergency Department by EMS. Patient reported she called 911 because she "felt like I was going to do something." She stated she just wanted to talk to someone but EMS arrived at her home and transported her to the Emergency Department. She reported she has extensive "nerve pain from spinal surgery three years ago." She indicated she was in daily pain and she takes Oxycodone daily but it "barely touches it." She reported she was on Methadone until several months ago when she was taken off of it because it was causing "damage to my heart." She reported her pain is so significant she can not think of anything else. Patient reported she moved to [place] a year ago to live with her daughter. She stated she previously had a house in [place] that she lost because she could not work and afford the mortgage. She stated she moved in with her granddaughter for a period of time and then moved to [place] to live with her daughter. She reported her relationship with her daughter was strained because her daughter is "angry." Patient reported her daughter lost custody of her children two years ago and lost all parental rights in November 2016. Patient indicated she raised her daughter's oldest daughter when she was removed due to her mother being in an abusive relationship. She stated the other children were removed due to drug use. The patient stated she did not think her daughter was still using drugs. Patient also stated someone was stealing her medications. She reported putting her pain medications in other bottles so "whoever" was stealing it would not find it. She stated when EMS arrived at her home they put the medication in the correct bottles. Patient reported she attended a [employer] green party in [place] yesterday but it was "excruciating" to travel there and function at the green party. She reported she was unable to sleep last night due to the pain. She indicated an overall decrease in her sleep and appetite due to the pain. Patient reported a history of suicidal ideation but no action to accompany the thoughts. She reported she experienced suicidal ideation today and considered taking enough of her medications to commit suicide. Patient indicated she has never acted on previous suicidal ideation because she is a "Quaker" and has strong nidia. She reported the nerve pain in her legs and feet made her feel "pretty desperate." Patient reported she had mental health treatment "years ago " but is not currently seeing anyone for treatment. She indicated her primary care physician prescribes her psychiatric medication. Patient gave this provider verbal consent and contact information for her granddaughter to gather collateral information. Provider attempted to contact the granddaughter and both provided contact numbers did not work. Patient stated she did not know why they did not work. [place] Controlled Registry was checked. The registry shows the patient has a history of obtaining narcotics from multiple providers over a short period of time. For example, from June 25, 2017 to July 07, 2017 she received 193 Oxycodone from four different providers at four different locations. The registry also shows a history of receiving Methadone and Oxycodone on the same days every few weeks for multiple weeks. Patient was alert and oriented to person, place, time and circumstance. Mood was Mood was dysphoric with congruent affect. Patient stated she was currently experiencing suicidal ideation with plan and access to means. She denied substance abuse issues stating people took more medications when what had been taken wasn't working. She did not appear to be responding to internal stimuli as evidenced by maintaining eye contact, staying on topic and answering questions appropriately when asked. Thought processes were rational, organized and linear. Conversational speech was within normal limits for rate, tone and prosody. Intellectual abilities were estimated to be in the average range. Insight, judgment and impulse control were poor as she continued to perseverate on getting her pain medications and continued expression of suicidal ideation. 1. 296.30 (F33.9) Major Depressive Disorder, recurrent 2. 305.51 (F11.10) Opioid Related Use Disorder, Mild 3. Z72 Problems Related to Lifestyle (Drug Seeking) R/O Major Depressive Disorder, Substance Induced Plan/Impression: Patient is not cleared for discharge. She demonstrates potential harm to herself by continued suicidal ideation, intent, plan and access. Patient is demonstrating dysphoric mood with congruent affect. With patient's current presentation and suicidal ideation/intent/plan she will be kept overnight for observation and be reevaluated tomorrow. Dr. Snyder was consulted in the care and management of this patient. ED physician in agreement with recommendation and disposition.
[2017-08-28] MEDS: OXYCODONE-ACETAMINOPHEN 5-325 MG TABLET PO SCH ×2 (16:40→21:11)
[2017-08-28] MEDS ORDERED: LIDOCAINE 5% (700 MG) TRANSDERMAL ADH..PATCH TP ONE (18:17)
--- NOTE | 2017-08-28 18:47 | ER Document Report ---
ED General - General Chief Complaint: Psych Problem Stated Complaint: PSYCH EVAL Time Seen by Provider: 08/28/17 14:35 TRAVEL OUTSIDE OF THE U.S. IN LAST 30 DAYS: No - HPI Patient complains to provider of: Chronic pain suicidal ideation Notes: Patient coming in for chronic pain suicidal ideation. Patient has multiple back surgeries does have a long extensive history on opioid medication. Patient states pain was controlled she was on methadone however she was taken off her methadone in either April or May. Patient states that sometimes been taking oxycodone recently started on Lyrica with no improvement of her pain patient states that the pain is unbearable and that she is thinking about taking all of her medications so she does not the "deal with it any more" patient also relates that she has a difficult relationship with her level that she is living with right now. Prior to my evaluation patient is already been seen by our psychiatric team. Patient does not voice any other issues patient denies fevers chills nausea vomiting dysuria - Related Data Allergies/Adverse Reactions: ZOILA Inhibitors Allergy (Verified 06/25/17 18:35) Past Medical History - Social History Smoking Status: Current Every Day Smoker Chew tobacco use (# tins/day): No Frequency of alcohol use: None Family History: Arthritis, CAD, COPD, CVA, Hyperlipidemia, Hypertension Patient has suicidal ideation: Yes Patient has homicidal ideation: No - Past Medical History Cardiac Medical History: Reports: Hx Hypercholesterolemia - History of, Hx Hypertension, Hx Pulmonary Embolism - No longer on Xarelto Denies: Hx Atrial Fibrillation, Hx Congestive Heart Failure, Hx Heart Attack Pulmonary Medical History: Reports: Hx Asthma, Hx COPD Denies: Hx Sleep Apnea Neurological Medical History: Denies: Hx Seizures Endocrine Medical History: Denies: Hx Diabetes Mellitus Type 1, Hx Diabetes Mellitus Type 2, Hx Hyperthyroidism, Hx Hypothyroidism Renal/ Medical History: Denies: Hx Peritoneal Dialysis Malignancy Medical History: Reports: Hx Lung Cancer - upper right lobe GI Medical History: Denies: Hx Cirrhosis, Hx Gastroesophageal Reflux Disease, Hx Hepatitis Musculoskeltal Medical History: Reports Hx Arthritis, Reports Hx Musculoskeletal Deformity, Reports Hx Musculoskeletal Trauma Psychiatric Medical History: Reports: Hx Depression Infectious Medical History: Denies: Hx Hepatitis Past Surgical History: Reports: Hx Hysterectomy, Hx Orthopedic Surgery - 4 back surgeries, Other - Partial right lobectomy for lung cancer. Multiple spinal surgeries. - Immunizations Hx Diphtheria, Pertussis, Tetanus Vaccination: No Hx Pneumococcal Vaccination: 06/05/11 Review of Systems - Review of Systems Constitutional: No symptoms reported EENT: No symptoms reported Cardiovascular: No symptoms reported Respiratory: No symptoms reported Gastrointestinal: No symptoms reported Genitourinary: No symptoms reported Female Genitourinary: No symptoms reported Musculoskeletal: No symptoms reported Skin: No symptoms reported Hematologic/Lymphatic: No symptoms reported Neurological/Psychological: Suicidal ideation - Chronic pain -: Yes All other systems reviewed and negative Physical Exam - Vital signs Vitals: Temp Pulse Resp BP Pulse Ox 97.8 F 87 20 145/69 H 95 08/28/17 13:12 08/28/17 13:12 08/28/17 13:12 08/28/17 13:12 08/28/17 13:12 Interpretation: Normal - General General appearance: Appears well, Alert - HEENT Head: Normocephalic, Atraumatic Eyes: Normal Pupils: PERRL - Respiratory Respiratory status: No respiratory distress Chest status: Nontender Breath sounds: Normal Chest palpation: Normal - Cardiovascular Rhythm: Regular Heart sounds: Normal auscultation Murmur: No - Abdominal Inspection: Normal Distension: No distension Bowel sounds: Normal Tenderness: Nontender Organomegaly: No organomegaly - Back Back: Normal, Nontender - Extremities General upper extremity: Normal inspection, Nontender, Normal color, Normal ROM , Normal temperature General lower extremity: Normal inspection, Nontender, Normal color, Normal ROM , Normal temperature, Normal weight bearing. No: Nani's sign - Neurological Neuro grossly intact: Yes Cognition: Normal [place] Coma Scale Eye Opening: Spontaneous Tereso Coma Scale Verbal: Oriented [place] Coma Scale Motor: Obeys Commands [place] Coma Scale Total: 15 Speech: Normal Motor strength normal: LUE, RUE, LLE, RLE Sensory: Normal - Psychological Associated symptoms: Agitated - Skin Skin Temperature: Warm Skin Moisture: Dry Skin Color: Normal Course - Re-evaluation Re-evalutation: 08/28/17 18:45 Patient continues to ask about pain medication. The review the psychiatric meds. Patient initially has agreed to stay for further evaluation in the morning voluntarily however I am concerned that if we do not meet the patient's expectations to control her pain that she will leave. Did not think the patient presentation lends itself to having her leave. Patient does have means to harm herself at home therefore I placed patient on IVC paperwork for suicidal ideation with plan by overdose. I placed in medications for the patient recommended by our psychiatric team. Patient's urinalysis does show UTI. Did give the patient IM shot of Rocephin will start Keflex urine culture will be sent. - Vital Signs Vital signs: Temp Pulse Resp BP Pulse Ox 97.8 F 88 20 148/66 H 95 08/28/17 18:24 08/28/17 18:24 08/28/17 18:24 08/28/17 18:24 08/28/17 18:24 - Laboratory Result Diagrams: 08/28/17 13:32 08/28/17 13:32 Laboratory results interpreted by me: 08/28/17 08/28/17 08/28/17 13:01 13:32 13:32 RBC 5.38 H Hgb 15.8 H Hct 47.1 H Calcium 10.8 H Urine Protein >=500 H Urine Nitrite POSITIVE H Ur Leukocyte Esterase LARGE H Salicylates < 1.0 L Acetaminophen < 10 L Discharge - Discharge Clinical Impression: Chronic pain of lower extremity, bilateral, Suicidal ideation Urinary tract infection Qualifiers: Urinary tract infection type: site unspecified Hematuria presence: without hematuria Qualified Code(s): N39.0 - Urinary tract infection, site not specified Condition: Fair Disposition: PSYCH HOSP/UNIT Referrals: MARKEL WEST MD [Primary Care Provider] - Follow up as needed
--- NOTE | 2017-08-28 20:47 | EKG REPORT ---
SEVERITY:- ABNORMAL ECG - SINUS RHYTHM PROBABLE LVH WITH SECONDARY REPOL ABNRM : Confirmed by: Nelson Carson MD 28-Aug-2017 20:46:05
[2017-08-28] MEDS: CEPHALEXIN 500 MG CAPSULE PO SCH (21:10)
[2017-08-28] MEDS: GABAPENTIN 400 MG CAPSULE PO SCH (21:10)
[2017-08-28] MEDS ORDERED: CLONIDINE HCL 0.1 MG TABLET PO SCH (22:00)
[2017-08-28] MEDS: SENNOSIDES/DOCUSATE 8.6-50 MG 1 EACH TABLET PO PRN (22:30)
[2017-08-29] MEDS: OXYCODONE-ACETAMINOPHEN 5-325 MG TABLET PO SCH ×2 (03:23→09:11)
[2017-08-29] MEDS: GABAPENTIN 400 MG CAPSULE PO SCH (07:04)
[2017-08-29] MEDS: CEPHALEXIN 500 MG CAPSULE PO SCH (09:11)
--- NOTE | 2017-08-29 09:36 | ER Document Report ---
Doctor's Note Notes: 08/29/17 09:34 Medical rounds: Chart reviewed and patient interviewed briefly. Vital signs are satisfactory. Laboratory values unremarkable. Patient is alert, oriented, and cooperative. She does seem to be mildly agitated. She has no specific somatic complaints. She is medically stable, awaiting reevaluation by psych and recommendations for disposition.
[2017-08-29] MEDS: SENNOSIDES/DOCUSATE 8.6-50 MG 1 EACH TABLET PO PRN (09:39)
[2017-08-29] MEDS ORDERED: SERTRALINE HCL 50 MG TABLET PO SCH (10:00)
[2017-08-29] MEDS ORDERED: NA PHOS,M-B/NA PHOS,DI-BA (ADULT) 133 ML ENEMA PR ONE (10:22)
[2017-08-29 11:14] VITALS: BP 129/65
--- NOTE | 2017-08-29 11:16 | PSYCHOLOGICAL NOTE ---
Psych Note - Psych Note Psych Note: Reason for Consult: Suicidal Ideation Consent Permissions: Tete Jordan, granddaughter [phone] Patient is a 72 year old female who is being re-evaluated after overnight observation for suicidal ideation. She stated she is still in "a lot of pain. I hardly got any sleep. The medications barely take the edge off." Patient enquired about a vascular physician here at [facility]. Patient was informed she would need to seek a provider outside of the Emergency Department for follow up with vascular issues. She stated she has an appointment with a vascular doctor in [place] on September 13, 2017. Patient stated she was going to have an EMG completed to discern reasons for her nerve pain. 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 Patient denied doctor shopping when confronted about information on the national registry. She stated she only received 120 Oxycodone a month and she was prescribed them from her primary care physician, Dr. Cohn. She denied she went any where else to get pain medication prescriptions. Patient denied she had ever used Suboxone even though the registry had an entry for a Suboxone prescription. Patient stated, "I've been on pain medications for four years. I' m already an addict." She further explained her medication never made her high and it did not control her pain level. Patient was observed to be agitated when discussing her pain levels but was cooperative in the discussion. Patient stated she called 911 last night not because she wanted to kill herself but because she wanted to talk to someone. She reported EMS told her they would take her to the hospital and the physicians at the hospital would make her comfortable. Patient reported this has not happened and she was not given enough pain medication. Patient reported when she was at the Emergency Department last time she was given a prescription for Percocet and the pharmacy filled it incorrectly. She stated the pharmacy gave her 20 pills instead of the 10 on her prescription and she thought they pills were half the dose it was supposed to be and that's why there were 20 of them. She reported going to the Pain Clinic the following Tuesday and they Pain Clinic "threw me out" because I had taken all but five of the pills and "they said I knew what the dosage was." Patient indicated she did not know it was the correct dosage and just the wrong number of pills. Patient denied knowing "much of anything about what pills were supposed to look like." Patient was alert and oriented to person, place, time and circumstance. Mood was frustrated with congruent affect. Patient denied suicidal ideation, intent or plan. She did not appear to be responding to internal stimuli as evidenced by maintaining eye contact, staying on topic and answering questions appropriately when asked. Thought processes were rational, organized and linear. Conversational speech was within normal limits for rate, tone and prosody. Intellectual abilities were estimated to be in the average range. Insight, judgment and impulse control were fair. Patient continues to perseverate on getting her pain medications. Patient was observed to become more agitated when discussing her pain levels. Patient gave verbal consent to speak to her granddaughter, Tete. Provider was able to speak with the granddaughter. Granddaughter stated she hasn't seen any behavioral changes in her grandmother within the past few months. She stated the patient is "always in a lot of pain" and needs to "do more physical therapy." The granddaughter stated the patient needs access to physical therapy and the resources to go to physical therapy. Granddaughter stated her mother ( patient's daughter) will be able to stay with the patient upon discharge. 1. 296.30 (F33.9) Major Depressive Disorder, recurrent 2. 305.51 (F11.10) Opioid Related Use Disorder, Mild 3. Z72 Problems Related to Lifestyle (Drug Seeking) R/O Major Depressive Disorder, Substance Induced Plan/Impression: Patient is psychiatrically cleared for discharge. Recommendation to rescind IVC. Patient does not meet [place] G.S 122C IVC criteria. Patient denied suicidal ideation, intent or plan. There was no observed psychosis. Provided patient with outpatient resources including Mobile Crisis contact information highlighted. Dr. Snyder was consulted in the care and management of this patient. ED physician in agreement with recommendation and disposition.
== END 2017-08-29 11:47 | disposition home or self-care (01) ==
LOC: ER 12:47
DX: N39.0 Urinary tract infection, site not specified (principal); F32.9 Major depressive disorder, single episode, unspecified; M79.604 Pain in right leg; M79.605 Pain in left leg; G89.29 Other chronic pain; F11.10 Opioid abuse, uncomplicated
CPT/HCPCS: 93005; 99285; 96372; 36415; 87086; 80307 ×4; 85025; 87088; 80053; 81001; 87186; 93010; A9270 ×12; J3490; J0696